=== PATIENT | female | born 1975 | race Hispanic/Latino ===

== ENCOUNTER 2022-03-30 14:37 | Emergency (ER) | payer OTHER ==
[2022-03-30 16:28] LABS: Hemoglobin 14.4 gm/dl (10.1-14.3); Mean Corpuscular HGB Conc 34 % (30-34); Mean Corpuscular Volume 96 fl (79-97); Platelet Count 254 K/mm3 (140-440); Red Blood Count 4.39 M/mm3 (3.65-5.03); Red Cell Distribution Width 13.6 % (13.2-15.2)
[2022-03-30 16:29] LABS: Alanine Aminotransferase 10 units/L (7-56); Albumin 4.2 g/dL (3.9-5); BUN/Creatinine Ratio 15; Blood Urea Nitrogen 12 mg/dL (7-17); Calcium 9.8 mg/dL (8.4-10.2); Hemolysis Index 4
--- NOTE | 2022-03-30 17:05 | Event Note ---
ED Screening Note ED Screening Note: PMH CELIAC DISEASE DIVERTICULITIS LOW BP GLUTEN ALLERGY CIG SMOKER RECOVERING OPIOD ADDICT- DOES NOT WANT OPIATE CC HEADACHE AND NAUSEA DID NOT SEE PCP RX ABDELRAHMAN OMEPRAZOLE CARAFATE PSH TUBAL APPY TOOK OTC WITH NO RELIEF OF HEADACHE NO TRAUMA NO FEVER NO LIGHT SENSITIVITY TALKING ON CELL PHONE DURING MOST OF EXAM NO FOCAL NEURO DEF. This initial assessment/diagnostic orders/clinical plan/treatment(s) is/are subject to change based on patients health status, clinical progression and re-assessment by fellow clinical providers in the ED. Further treatment and workup at subsequent clinical providers discretion. Patient/guardian urged not to elope from the ED as their condition may be serious if not clinically assessed and managed. Initial orders include: LABS / UA
[2022-03-30 18:18] LABS: Bilirubin,Urine NEG (Negative); Blood,Urine NEG (Negative); Color,Urine Straw (Yellow); Protein,Urine <15 mg/dL mg/dL (Negative); Urobilinogen,Urine < 2.0 mg/dL (<2.0)
[2022-03-30 18:28] LABS: Bacteria,Urine 2+ /HPF (Negative)
[2022-03-30 18:40] LABS: HCG Qualitative,Urine Negative (Negative)
[2022-03-30] MEDS ORDERED: KETOROLAC 10 MG TAB PO ONE (18:48)
[2022-03-30] MEDS ORDERED: dexAMETHasone 4 MG/ML VIAL IM ONE (18:49)
[2022-03-30] MEDS ORDERED: diphenhydrAMINE 25 MG CAP PO ONE (18:49)
[2022-03-30] MEDS ORDERED: METOCLOPRAMIDE 10 MG TAB PO ONE (18:49)
--- NOTE | 2022-03-30 19:18 | Cat Scan Report ---
CT head/brain wo con INDICATION / CLINICAL INFORMATION: 46 years Female; persistent hathaway. TECHNIQUE: Routine CT head without contrast. All CT scans at this location are performed using CT dos e reduction for ALARA by means of automated exposure control. COMPARISON: None. FINDINGS: BRAIN / INTRACRANIAL CONTENTS: The brain parenchyma demonstrate appropriate attenuation. The ventricu lar system is within normal limits in size and configuration. There is no CT evidence of acute intrac ranial hemorrhage or significant mass effect. ORBITS: No significant abnormality of visualized orbits. SINUSES / MASTOIDS: No significant abnormality in the visualized paranasal sinuses or mastoid air joe ls. CRANIOCERVICAL JUNCTION: No significant abnormality. ADDITIONAL FINDINGS: None. IMPRESSION: 1. There is no CT evidence of acute intracranial process. Signer Name: Dilan Alvarez MD Signed: 03/30/2022 7:13 PM Workstation Name: [id number]
--- NOTE | 2022-03-30 20:21 | Emergency Department Report ---
ED Headache HPI - General Chief Complaint: Headache Stated Complaint: HEADACHE,NASUEA Time Seen by Provider: 03/30/22 17:59 - History of Present Illness Initial Comments: 46-year-old white female presents to the emergency department for evaluation of 4-day history of headache. She states that headache has been getting worse each day despite use of several wmhq-yfi-nnzkxbh medications such as Tylenol, ibuprofen, Goody powders, and BC powders. She states that headache is associated with nausea, dizziness, and intermittent vision changes, but she denies photophobia. Timing/Duration: other (4 days) Quality: severe, achy Head Injury Location: occipital Recent Head Trauma: no recent headache/trauma Associated Symptoms: vision changes. denies: confusion, fatigue, facial pain, fever/chills, flushing, loss of consciousness, nausea/vomiting, nasal congestion, nasal drainage, numbness in legs/feet, rash, sinus infection, stiff neck, weakness Allergies/Adverse Reactions: Allergies No Known Allergies Allergy (Unverified 03/30/22 14:45) Home Medications: Ambulatory Orders Metoclopramide [Reglan] 10 mg PO TID PRN #15 tab 03/30/22 ED Review of Systems ROS: Stated complaint: HEADACHE,NASUEA Other details as noted in HPI Comment: All other systems reviewed and negative Constitutional: denies: chills, fever Eyes: vision change. denies: eye pain ENT: denies: dental pain, congestion Respiratory: denies: shortness of breath Cardiovascular: denies: chest pain, palpitations Gastrointestinal: denies: abdominal pain, nausea, vomiting Genitourinary: denies: urgency, dysuria Musculoskeletal: denies: back pain Skin: denies: rash, lesions Neurological: headache. denies: weakness, numbness, paresthesias, confusion, abnormal gait, vertigo ED Past Medical Hx - Past Medical History Previous Medical History?: Yes Additional medical history: ETOH abuse - Surgical History Past Surgical History?: Yes Additional Surgical History: appendectomy, tubal ligation - Social History Smoking Status: Current Every Day Smoker - Medications Home Medications: Home Medications Medication Instructions Recorded Confirmed Last Taken Type Metoclopramide [Reglan] 10 mg PO TID PRN #15 tab 03/30/22 Unknown Rx ED Physical Exam - General Limitations: No Limitations General appearance: alert, in no apparent distress - Head Head exam: Present: atraumatic, normocephalic - Eye Eye exam: Present: normal appearance. Absent: scleral icterus, conjunctival injection, periorbital swelling, periorbital tenderness - ENT ENT exam: Present: normal exam - Neck Neck exam: Present: normal inspection. Absent: tenderness, full ROM, lymphadenopathy - Respiratory Respiratory exam: Present: normal lung sounds bilaterally. Absent: respiratory distress, wheezes, rales, rhonchi, stridor, chest wall tenderness - Cardiovascular Cardiovascular Exam: Present: regular rate, normal heart sounds - GI/Abdominal GI/Abdominal exam: Present: soft, normal bowel sounds. Absent: distended, tenderness, guarding, rebound, rigid - Extremities Exam Extremities exam: Present: normal inspection, normal capillary refill. Absent: pedal edema, joint swelling, calf tenderness - Back Exam Back exam: Present: normal inspection. Absent: vertebral tenderness - Neurological Exam Neurological exam: Present: alert, oriented X3 - Expanded Neurological Exam Expanded Patient oriented to: Present: person, place, time Speech: Present: fluid speech Cranial nerves: EOM's Intact: Normal, Gag Reflex: Normal, Tongue Deviation: Normal, Nystagmus: Normal, Facial Sensation: Normal Sensory exam: Upper Extremity Light Touch: Normal, Upper Extremity Temperature: Normal, Lower Extremity Light Touch: Normal, Lower Extremity Temperature: Normal Motor strength exam: RUE: 5, LUE: 5, RLE: 5, LLE: 5 Best Eye Response ([place]): (4) open spontaneously Best Motor Response ([place]): (6) obeys commands Best Verbal Response ([place]elli): (5) oriented [place] Total: 15 - Psychiatric Psychiatric exam: Present: normal affect, normal mood - Skin Skin exam: Present: warm, dry, intact, normal color ED Course Vital Signs 03/30/22 14:48 Temperature 98.1 F Pulse Rate 69 Respiratory 18 Rate Blood Pressure 94/72 O2 Sat by Pulse 97 Oximetry - Reevaluation(s) Reevaluation #1: 03/30/22 20:49 Headache totally resolved after medications. Patient states she feels much better. ED Medical Decision Making - Lab Data Result diagrams: 03/30/22 15:46 03/30/22 15:46 - Radiology Data Radiology results: report reviewed, image reviewed CT scan of head and brain without contrast: FINDINGS: BRAIN / INTRACRANIAL CONTENTS: The brain parenchyma demonstrate appropriate attenuation. The ventricular system is within normal limits in size and configuration. There is no CT evidence of acute intracranial hemorrhage or significant mass effect. ORBITS: No significant abnormality of visualized orbits. SINUSES / MASTOIDS: No significant abnormality in the visualized paranasal sinuses or mastoid air cells. CRANIOCERVICAL JUNCTION: No significant abnormality. ADDITIONAL FINDINGS: None. IMPRESSION: 1. There is no CT evidence of acute intracranial process. - Medical Decision Making 46-year-old white female presents to the emergency department for evaluation of 4-day history of headache. She states that headache has been getting worse each day despite use of several unfz-omw-qotslgz medications such as Tylenol, ibuprofen, Goody powders, and BC powders. She states that headache is associated with nausea, dizziness, and intermittent vision changes, but she denies photophobia. Physical exam unremarkable. Labs within normal limit and CT scan of the head without contrast without any acute abnormalities noted. Headache totally reso lved after medication. Patient will be discharged home with prescription for Reglan and advised to use Reglan along with Benadryl as needed for headache and follow-up with her primary care provider for worsening symptoms. She is advised to return to the emergency department for any concerning symptoms. She verbalizes understanding of and agreement with plan of care. Critical care attestation.: If time is entered above; I have spent that time in minutes in the direct care of this critically ill patient, excluding procedure time. ED Disposition Clinical Impression: Headache Qualifiers: Headache type: unspecified Headache chronicity pattern: acute headache Int ractability: not intractable Qualified Code(s): R51.9 - Headache, unspecified Disposition: 01 HOME / SELF CARE / HOMELESS Is pt being admited?: No Does the pt Need Aspirin: No Condition: Stable Instructions: General Headache Without Cause, Uozu-nx-Inuc Additional Instructions: Take medications as prescribed. Follow up with primary care provider if no improvement or worsening symptoms. Return to ed as needed. Prescriptions: Metoclopramide [Reglan] 10 mg PO TID PRN #15 tab PRN Reason: Headache Referrals: ANNALEE ALVES MD [Staff Physician] - 3-5 Days Time of Disposition: 20:21
[2022-03-30 20:57] VITALS: BP 107/78
== END 2022-03-30 20:57 | disposition home or self-care (01) ==
LOC: ED 14:37
DX: R51.9 Headache, unspecified (principal); F17.200 Nicotine dependence, unspecified, uncomplicated
CPT/HCPCS: 36415; 70450; 80053; 81001; 81025; 83690; 85027; 96372; 99284; J1100